=== PATIENT | female | born 2000 | race Caucasian/White ===

== ENCOUNTER 2021-03-25 10:17 | Outpatient (CLI) | payer BC | END 2021-03-25 23:59 | disposition home or self-care (01) | LOC: LAB 10:17 | PROVIDERS: ATTEND Student in an Organized Health Care Education/Training Program | DX: Z01.812 Encounter for preprocedural laboratory examination (principal); Z20.822 Contact with and (suspected) exposure to COVID-19 | CPT/HCPCS: C9803; U0003 ==

== ENCOUNTER 2021-03-29 10:48 | Day surgery (SDC) | payer BC ==
[2021-03-29] MEDS ORDERED: MORPHINE SULFATE/PF 10 MG/10ML (1MG/ML) AMPUL ONE (11:12)
[2021-03-29] MEDS ORDERED: EPINEPHRINE (1:1000) 1 MG/ML AMPUL ONE (11:13)
[2021-03-29] MEDS ORDERED: BUPIVACAINE 0.5 % PF 150 MG/30 ML VIAL ONE (11:13)
[2021-03-29] MEDS ORDERED: FENTANYL PF 250MCG/5ML AMPUL ONE ×2 (12:02)
[2021-03-29] MEDS ORDERED: HYDROMORPHONE INJ 2 MG/ML DISP.SYRIN ONE (12:03)
[2021-03-29] MEDS ORDERED: MIDAZOLAM HCL 2 MG/2ML VIAL ONE (12:03)
[2021-03-29] MEDS ORDERED: FENTANYL PF 100MCG/2ML AMPUL ONE (14:14)
[2021-03-29] MEDS ORDERED: HYDROCODONE/APAP 5/325MG TABLET ONE (15:00)
[2021-03-29] MEDS ORDERED: ONDANSETRON HCL/PF 4 MG/2 ML VIAL ONE (15:04)
== END 2021-03-29 16:40 | disposition home or self-care (01) ==
LOC: DS 10:48
PROVIDERS: ATTEND Student in an Organized Health Care Education/Training Program
DX: M22.41 Chondromalacia patellae, right knee (principal); E66.01 Morbid (severe) obesity due to excess calories; M23.51 Chronic instability of knee, right knee
CPT/HCPCS: 27422; 29877; 73560; 84703; A4217; C1713 ×2; J0171; J0690; J1170; J2250; J2274; J2405 ×2; J2704; J2765; J3010 ×3; J3490 ×3; J7050; L1830